=== PATIENT | female | born 1940 | race Two or more races ===

== ENCOUNTER 2021-10-22 20:49 | Inpatient (IN) | payer MEDICARE, OTHER ==
[~2021-10-22] VITALS: Ht 162.6 cm; Wt 62.3 kg
[2021-10-22 21:38] LABS: Basophils # (auto) 0.1 10 ^3/uL (0-0.2); Basophils % (auto) 1.1 % (0.0-2.0); Eosinophils # (auto) 0 10 ^3/uL (0-0.8); Eosinophils % (auto) 0.5 % (0.0-7.0); Hematocrit 55.4 % (36.0-46.0); Hemoglobin 17.3 g/dL (12.2-16.2); Lymphocytes # (auto) 0.8 10 ^3/uL (0.4-5.4); Lymphocytes % (auto) 9.2 % (10.0-50.0); Mean Corpuscular Hemoglobin 25.8 pg (28.0-32.0); Mean Corpuscular Hgb Conc. 31.2 g/dL (32.0-36.0); Mean Corpuscular Volume 82.7 fL (80.0-100.0); Monocytes # (auto) 0.8 10 ^3/uL (0-1.3); Monocytes % (auto) 9.1 % (0.0-12.0); Neutrophils # (auto) 7.1 10 ^3/uL (1.6-8.6); Neutrophils % (auto) 80.1 % (37.0-80.0); Nucleated Red Blood Cells % 0.3 %; White Blood Cell 8.8 10^3/uL (4.4-10.8)
[2021-10-22 21:40] LABS: Red Cell Distribution Width 20.9 % (11.8-14.3)
[2021-10-22 21:51] LABS: Albumin 2.8 g/dL (3.4-5.0); Calcium 8.4 mg/dL (8.5-10.1); Potassium 4.3 mmol/L (3.5-5.1)
[2021-10-22 21:54] LABS: BUN/Creatinine Ratio 26.3; Bilirubin, Total 1.4 mg/dL (0.2-1.0); Total Protein 6.7 g/dL (6.4-8.2)
[2021-10-23] MEDS ORDERED: methylPREDNISolone SOD SUCC 125 MG/2 ML VL IV ONE (01:15)
[2021-10-23] MEDS ORDERED: cefTRIAXone 1GM/50ML D5W 50 ML IV ONE (01:15)
[2021-10-23] MEDS ORDERED: AZITHROMYCIN 500MG/ 250ML 250 ML IV ONE (01:15)
[2021-10-23] MEDS ORDERED: MORPHINE SULFATE INJ 2 MG/ml SYRG IV PRN (04:15)
[2021-10-23] MEDS ORDERED: ACETAMINOPHEN 325 MG TAB PO PRN (04:15)
[2021-10-23] MEDS ORDERED: ALBUTEROL SULF 2.5 MG/0.5ML(0.5%) NEB SOLN NEB PRN (04:15)
[2021-10-23] MEDS ORDERED: FUROSEMIDE 40 MG/4 ML VIAL IV ONE (04:15)
[2021-10-23] MEDS ORDERED: ONDANSETRON HCL 4 MG/2 ML VIAL IV PRN (04:15)
[2021-10-23] MEDS ORDERED: NITROGLYCERIN 0.4 MG SL TAB SL PRN (04:15)
[2021-10-23 09:19] LABS: INR 1.37 (0.9-1.15); Partial Thromboplastin Time 28.6 sec (23.6-33.0)
[2021-10-23 09:24] VITALS: BP 118/64
[2021-10-23] MEDS: AZITHROMYCIN 500MG/ 250ML 250 ML IV SCH (10:00)
[2021-10-23] MEDS: ASPirin 81 mg TAB PO SCH (10:00)
[2021-10-23] MEDS ORDERED: PANTOPRAZOLE 40 MG TAB PO SCH (10:00)
[2021-10-23] MEDS: ENOXAPARIN SOD 40 MG/0.4 ML SYRINGE SC SCH (10:00)
[2021-10-23] MEDS: CARVEDILOL 3.125 MG TAB PO SCH ×2 (10:00→22:00)
[2021-10-23 13:37] VITALS: BP 118/64
[2021-10-23] MEDS: LORazepam 2MG/ML-1ML VIAL IV PRN (15:42)
[2021-10-23] MEDS: FUROSEMIDE 20 MG/2 ML VIAL IV SCH (17:13)
[2021-10-23 22:00] VITALS: BP 93/53
[2021-10-23] MEDS: ATORVASTATIN 20 MG TAB PO SCH (22:00)
[2021-10-23 23:45] VITALS: BP 102/40
[2021-10-24 05:00] VITALS: BP_SYST 103; BP_SYST 122; BP_DIAS 58; BP_DIAS 59
[2021-10-24] MEDS: FUROSEMIDE 20 MG/2 ML VIAL IV SCH ×2 (06:56→18:21)
[2021-10-24 07:05] LABS: Basophils # (auto) 0 10 ^3/uL (0-0.2); Basophils % (auto) 0.1 % (0.0-2.0); Eosinophils # (auto) 0 10 ^3/uL (0-0.8); Hemoglobin 16.8 g/dL (12.2-16.2); Monocytes # (auto) 1.3 10 ^3/uL (0-1.3); White Blood Cell 10.1 10^3/uL (4.4-10.8)
[2021-10-24 07:11] LABS: Hematocrit 55.9 % (36.0-46.0); Lymphocytes # (auto) 0.9 10 ^3/uL (0.4-5.4); Mean Corpuscular Volume 86.9 fL (80.0-100.0); Monocytes % (auto) 12.6 % (0.0-12.0); Neutrophils # (auto) 7.9 10 ^3/uL (1.6-8.6); Neutrophils % (auto) 78.3 % (37.0-80.0); Nucleated Red Blood Cells % 0.7 %; Red Blood Cells 6.44 10^6/uL (4.0-5.20); Red Cell Distribution Width 21.2 % (11.8-14.3)
[2021-10-24 07:28] LABS: Potassium 4.8 mmol/L (3.5-5.1)
[2021-10-24 07:40] LABS: Albumin 2.5 g/dL (3.4-5.0); BUN/Creatinine Ratio 30.7; Bilirubin, Total 0.7 mg/dL (0.2-1.0); Calcium 8.3 mg/dL (8.5-10.1); Total Protein 6.4 g/dL (6.4-8.2)
[2021-10-24 08:00] VITALS: BP 106/53
[2021-10-24 08:10] VITALS: BP 106/53
[2021-10-24] MEDS: AZITHROMYCIN 500MG/ 250ML 250 ML IV SCH (09:39)
[2021-10-24] MEDS: ASPirin 81 mg TAB PO SCH (09:44)
[2021-10-24] MEDS: CARVEDILOL 3.125 MG TAB PO SCH ×2 (09:45→22:08)
[2021-10-24] MEDS: ENOXAPARIN SOD 40 MG/0.4 ML SYRINGE SC SCH (09:46)
[2021-10-24] MEDS: methylPREDNISolone SOD SUCC 40 MG/ML VL IV SCH ×2 (11:02→22:06)
[2021-10-24 12:00] VITALS: BP 112/64
[2021-10-24 16:00] VITALS: BP 103/44
[2021-10-24 22:00] VITALS: BP 144/57
[2021-10-24] MEDS: ATORVASTATIN 20 MG TAB PO SCH (22:08)
[2021-10-25 05:00] VITALS: BP 124/51
[2021-10-25] MEDS: FUROSEMIDE 20 MG/2 ML VIAL IV SCH ×2 (06:29→18:00)
[2021-10-25] MEDS: CARVEDILOL 3.125 MG TAB PO SCH ×2 (10:00→21:52)
[2021-10-25] MEDS: ASPirin 81 mg TAB PO SCH (11:03)
[2021-10-25] MEDS: methylPREDNISolone SOD SUCC 40 MG/ML VL IV SCH ×2 (11:06→23:06)
[2021-10-25] MEDS: ENOXAPARIN SOD 40 MG/0.4 ML SYRINGE SC SCH (11:06)
[2021-10-25] MEDS: LORazepam 2MG/ML-1ML VIAL IV PRN ×2 (11:06→21:02)
[2021-10-25] MEDS: AZITHROMYCIN 500MG/ 250ML 250 ML IV SCH (11:07)
[2021-10-25 13:00] VITALS: BP 99/51
[2021-10-25 14:23] LABS: Basophils # (auto) 0 10 ^3/uL (0-0.2); Basophils % (auto) 0.1 % (0.0-2.0); Eosinophils # (auto) 0 10 ^3/uL (0-0.8); Hemoglobin 15.4 g/dL (12.2-16.2); Monocytes # (auto) 0.4 10 ^3/uL (0-1.3); Neutrophils # (auto) 6.2 10 ^3/uL (1.6-8.6)
[2021-10-25 14:26] LABS: Hematocrit 49.4 % (36.0-46.0); Lymphocytes # (auto) 0.4 10 ^3/uL (0.4-5.4); Lymphocytes % (auto) 5.8 % (10.0-50.0); Mean Corpuscular Hemoglobin 26.1 pg (28.0-32.0); Mean Corpuscular Hgb Conc. 31.2 g/dL (32.0-36.0); Mean Corpuscular Volume 83.6 fL (80.0-100.0); Monocytes % (auto) 5.3 % (0.0-12.0); Neutrophils % (auto) 88.8 % (37.0-80.0); Nucleated Red Blood Cells % 0.3 %; Red Blood Cells 5.91 10^6/uL (4.0-5.20); Red Cell Distribution Width 20.6 % (11.8-14.3)
[2021-10-25 14:45] LABS: Calcium 8.1 mg/dL (8.5-10.1); Potassium 4.7 mmol/L (3.5-5.1)
[2021-10-25 14:47] LABS: BUN/Creatinine Ratio 41.7
[2021-10-25 17:00] VITALS: BP 109/53
[2021-10-25] MEDS: MIDODRINE HCL 10 MG TAB PO SCH (18:00)
[2021-10-25 20:00] VITALS: BP 98/51
[2021-10-25 22:00] VITALS: BP 99/43
[2021-10-25] MEDS: ATORVASTATIN 20 MG TAB PO SCH (22:00)
[2021-10-26 05:00] VITALS: BP 132/70
[2021-10-26] MEDS: MIDODRINE HCL 10 MG TAB PO SCH ×3 (05:19→17:36)
[2021-10-26] MEDS: FUROSEMIDE 20 MG/2 ML VIAL IV SCH ×2 (05:20→17:36)
[2021-10-26 09:00] VITALS: BP 102/45
[2021-10-26 09:09] VITALS: BP 163/70
[2021-10-26] MEDS: AZITHROMYCIN 500MG/ 250ML 250 ML IV SCH (09:18)
[2021-10-26] MEDS: ENOXAPARIN SOD 40 MG/0.4 ML SYRINGE SC SCH (09:18)
[2021-10-26] MEDS: methylPREDNISolone SOD SUCC 40 MG/ML VL IV SCH ×2 (09:18→21:37)
[2021-10-26] MEDS: CARVEDILOL 3.125 MG TAB PO SCH ×2 (10:00→22:00)
[2021-10-26] MEDS: LACTULOSE 20Gm/30ML SOLN PO SCH (10:00)
[2021-10-26] MEDS: ASPirin 81 mg TAB PO SCH (10:00)
[2021-10-26 13:00] VITALS: BP 121/68
[2021-10-26] MEDS: QUEtiapine FUMARATE 25 MG TAB PO SCH ×2 (16:00→22:00)
[2021-10-26 17:00] VITALS: BP 131/57
[2021-10-26 22:00] VITALS: BP 102/52
[2021-10-26] MEDS: ATORVASTATIN 20 MG TAB PO SCH (22:00)
[2021-10-26] MEDS ORDERED: QUEtiapine FUMARATE 25 MG TAB PO SCH (22:00)
[2021-10-27] MEDS: CARVEDILOL 3.125 MG TAB PO SCH ×3 (00:07→21:06)
[2021-10-27] MEDS: ATORVASTATIN 20 MG TAB PO SCH ×2 (00:07→21:05)
[2021-10-27] MEDS: QUEtiapine FUMARATE 25 MG TAB PO SCH ×3 (00:07→21:05)
[2021-10-27 05:00] VITALS: BP 130/79
[2021-10-27] MEDS: FUROSEMIDE 20 MG/2 ML VIAL IV SCH ×2 (05:38→18:39)
[2021-10-27] MEDS: MIDODRINE HCL 10 MG TAB PO SCH ×3 (05:38→18:00)
[2021-10-27 08:00] VITALS: BP 115/68
[2021-10-27 09:51] LABS: Hepatitis B Surface Antibody Negative (Negative)
[2021-10-27] MEDS: ASPirin 81 mg TAB PO SCH (11:04)
[2021-10-27] MEDS: AZITHROMYCIN 500MG/ 250ML 250 ML IV SCH (11:04)
[2021-10-27] MEDS: methylPREDNISolone SOD SUCC 40 MG/ML VL IV SCH ×2 (11:04→21:05)
[2021-10-27] MEDS: LACTULOSE 20Gm/30ML SOLN PO SCH (11:04)
[2021-10-27] MEDS: ENOXAPARIN SOD 40 MG/0.4 ML SYRINGE SC SCH (11:09)
[2021-10-27 11:22] LABS: Hepatitis A Total Antibody Positive (Negative)
[2021-10-27 11:57] LABS: Basophils # (auto) 0 10 ^3/uL (0-0.2); Eosinophils # (auto) 0 10 ^3/uL (0-0.8); Lymphocytes # (auto) 0.5 10 ^3/uL (0.4-5.4); Monocytes # (auto) 0.5 10 ^3/uL (0-1.3)
[2021-10-27 11:59] LABS: Hematocrit 54.5 % (36.0-46.0); Lymphocytes % (auto) 5.9 % (10.0-50.0); Mean Corpuscular Hgb Conc. 31.2 g/dL (32.0-36.0); Mean Corpuscular Volume 83.6 fL (80.0-100.0); Monocytes % (auto) 6.5 % (0.0-12.0); Neutrophils # (auto) 6.8 10 ^3/uL (1.6-8.6); Neutrophils % (auto) 87.6 % (37.0-80.0); Nucleated Red Blood Cells % 0.4 %; Red Blood Cells 6.52 10^6/uL (4.0-5.20); White Blood Cell 7.8 10^3/uL (4.4-10.8)
[2021-10-27 12:00] VITALS: BP 123/62
[2021-10-27 12:06] LABS: Red Cell Distribution Width 20.2 % (11.8-14.3)
[2021-10-27 12:10] LABS: Hepatitis C Antibody Negative (Negative)
[2021-10-27 12:15] LABS: BUN/Creatinine Ratio 47.8; Calcium 8.7 mg/dL (8.5-10.1); Potassium 4.8 mmol/L (3.5-5.1)
[2021-10-27] MEDS: LORazepam 2MG/ML-1ML VIAL IV PRN (14:43)
[2021-10-27 16:00] VITALS: BP 115/52
[2021-10-27 22:00] VITALS: BP 121/76
[2021-10-28] MEDS: FUROSEMIDE 20 MG/2 ML VIAL IV SCH ×2 (04:59→18:14)
[2021-10-28 05:00] VITALS: BP 108/54
[2021-10-28] MEDS: MIDODRINE HCL 10 MG TAB PO SCH ×3 (05:00→18:14)
[2021-10-28 06:36] LABS: Chloride 98 mmol/L (98-107); Sodium 137 mmol/L (136-145)
[2021-10-28 06:47] LABS: Anion Gap 3 (5-15); BUN/Creatinine Ratio 44.3; Blood Urea Nitrogen 31 mg/dL (7-18); Calcium 8.5 mg/dL (8.5-10.1); Carbon Dioxide 36 mmol/L (21-32); GFR African American 104 mL/min; GFR Non-African American 86 mL/min; Glucose 154 mg/dL (74-106)
[2021-10-28 06:52] LABS: Potassium 5.7 mmol/L (3.5-5.1)
[2021-10-28 08:07] LABS: Basophils # (auto) 0 10 ^3/uL (0-0.2); Eosinophils # (auto) 0 10 ^3/uL (0-0.8); Hemoglobin 16.7 g/dL (12.2-16.2); Lymphocytes # (auto) 0.4 10 ^3/uL (0.4-5.4); Monocytes # (auto) 0.4 10 ^3/uL (0-1.3); Neutrophils # (auto) 7.1 10 ^3/uL (1.6-8.6); Nucleated Red Blood Cells % 0.2 %; White Blood Cell 7.9 10^3/uL (4.4-10.8)
[2021-10-28 08:09] LABS: Basophils % (auto) 0.1 % (0.0-2.0); Eosinophils % (auto) 0.1 % (0.0-7.0); Hematocrit 53.1 % (36.0-46.0); Lymphocytes % (auto) 4.7 % (10.0-50.0); Mean Corpuscular Hemoglobin 26.3 pg (28.0-32.0); Mean Corpuscular Hgb Conc. 31.4 g/dL (32.0-36.0); Mean Corpuscular Volume 83.7 fL (80.0-100.0); Monocytes % (auto) 5.2 % (0.0-12.0); Neutrophils % (auto) 89.9 % (37.0-80.0); Red Blood Cells 6.34 10^6/uL (4.0-5.20)
[2021-10-28 08:17] LABS: Red Cell Distribution Width 20.6 % (11.8-14.3)
[2021-10-28] MEDS: methylPREDNISolone SOD SUCC 40 MG/ML VL IV SCH ×2 (09:47→21:18)
[2021-10-28] MEDS: LACTULOSE 20Gm/30ML SOLN PO SCH (10:00)
[2021-10-28] MEDS: QUEtiapine FUMARATE 25 MG TAB PO SCH ×2 (10:00→21:18)
[2021-10-28] MEDS: CARVEDILOL 3.125 MG TAB PO SCH ×2 (10:00→21:19)
[2021-10-28] MEDS: ASPirin 81 mg TAB PO SCH (10:00)
[2021-10-28] MEDS: ENOXAPARIN SOD 40 MG/0.4 ML SYRINGE SC SCH (10:02)
[2021-10-28] MEDS: AZITHROMYCIN 500MG/ 250ML 250 ML IV SCH (10:04)
[2021-10-28] MEDS ORDERED: PIPERACILLIN-TAZOB 3.375GM 100 ML IV ONE (20:45)
[2021-10-28] MEDS: PIPERACILLIN-TAZOB 3.375GM 100 ML IV SCH (21:00)
[2021-10-28] MEDS: ATORVASTATIN 20 MG TAB PO SCH (21:18)
[2021-10-28 22:00] VITALS: BP 128/81
[2021-10-28 23:34] VITALS: BP 116/56
[2021-10-29] VITALS (7 sets, daily range): BP systolic 107–120; BP diastolic 50–62
[2021-10-29 03:40] LABS: BUN/Creatinine Ratio 42.3; Calcium 8.4 mg/dL (8.5-10.1); Potassium 4.7 mmol/L (3.5-5.1)
[2021-10-29] MEDS: PIPERACILLIN-TAZOB 3.375GM 100 ML IV SCH ×3 (03:54→21:53)
[2021-10-29 04:51] LABS: Basophils # (auto) 0 10 ^3/uL (0-0.2); Basophils % (auto) 0.4 % (0.0-2.0); Eosinophils # (auto) 0 10 ^3/uL (0-0.8); Nucleated Red Blood Cells % 0.4 %
[2021-10-29 04:53] LABS: Hematocrit 53.8 % (36.0-46.0); Lymphocytes # (auto) 0.5 10 ^3/uL (0.4-5.4); Lymphocytes % (auto) 5.7 % (10.0-50.0); Mean Corpuscular Hemoglobin 25.8 pg (28.0-32.0); Mean Corpuscular Hgb Conc. 31.6 g/dL (32.0-36.0); Mean Corpuscular Volume 81.7 fL (80.0-100.0); Monocytes # (auto) 0.3 10 ^3/uL (0-1.3); Monocytes % (auto) 3.6 % (0.0-12.0); Neutrophils # (auto) 7.2 10 ^3/uL (1.6-8.6); Neutrophils % (auto) 90.3 % (37.0-80.0); Red Blood Cells 6.58 10^6/uL (4.0-5.20)
[2021-10-29 05:01] LABS: Red Cell Distribution Width 20.7 % (11.8-14.3)
[2021-10-29] MEDS: FUROSEMIDE 20 MG/2 ML VIAL IV SCH ×2 (05:22→18:55)
[2021-10-29] MEDS: MIDODRINE HCL 10 MG TAB PO SCH ×3 (05:58→18:00)
[2021-10-29] MEDS: ENOXAPARIN SOD 40 MG/0.4 ML SYRINGE SC SCH (10:00)
[2021-10-29] MEDS: LACTULOSE 20Gm/30ML SOLN PO SCH (10:25)
[2021-10-29] MEDS: methylPREDNISolone SOD SUCC 40 MG/ML VL IV SCH ×2 (10:26→21:54)
[2021-10-29] MEDS: ASPirin 81 mg TAB PO SCH (10:26)
[2021-10-29] MEDS: QUEtiapine FUMARATE 25 MG TAB PO SCH ×2 (10:27→22:00)
[2021-10-29] MEDS: CARVEDILOL 3.125 MG TAB PO SCH ×2 (10:28→22:00)
[2021-10-29] MEDS: LORazepam 2MG/ML-1ML VIAL IV PRN (10:31)
[2021-10-29] MEDS: ATORVASTATIN 20 MG TAB PO SCH (22:00)
[2021-10-30] MEDS: PIPERACILLIN-TAZOB 3.375GM 100 ML IV SCH ×3 (04:25→21:11)
[2021-10-30 05:00] VITALS: BP 109/57
[2021-10-30 05:04] LABS: BUN/Creatinine Ratio 40.8; Blood Urea Nitrogen 29 mg/dL (7-18); Chloride 86 mmol/L (98-107); GFR African American 102 mL/min; GFR Non-African American 84 mL/min; Glucose 158 mg/dL (74-106); Sodium 140 mmol/L (136-145)
[2021-10-30 05:50] LABS: Anion Gap 6 (5-15); Carbon Dioxide 48 mmol/L (21-32)
[2021-10-30] MEDS: FUROSEMIDE 20 MG/2 ML VIAL IV SCH ×2 (06:51→17:59)
[2021-10-30] MEDS: MIDODRINE HCL 10 MG TAB PO SCH ×3 (06:51→17:58)
[2021-10-30 09:00] VITALS: BP 135/70
[2021-10-30 09:07] LABS: Basophils # (auto) 0 10 ^3/uL (0-0.2); Eosinophils # (auto) 0 10 ^3/uL (0-0.8); Lymphocytes # (auto) 0.7 10 ^3/uL (0.4-5.4); Mean Corpuscular Volume 82.7 fL (80.0-100.0); Monocytes % (auto) 5.6 % (0.0-12.0); Neutrophils # (auto) 10.2 10 ^3/uL (1.6-8.6); White Blood Cell 11.6 10^3/uL (4.4-10.8)
[2021-10-30 09:09] LABS: Basophils % (auto) 0.2 % (0.0-2.0); Hematocrit 58.9 % (36.0-46.0); Hemoglobin 18.7 g/dL (12.2-16.2); Lymphocytes % (auto) 6.2 % (10.0-50.0); Mean Corpuscular Hemoglobin 26.3 pg (28.0-32.0); Mean Corpuscular Hgb Conc. 31.8 g/dL (32.0-36.0); Monocytes # (auto) 0.7 10 ^3/uL (0-1.3); Nucleated Red Blood Cells % 0.5 %; Red Blood Cells 7.13 10^6/uL (4.0-5.20); Red Cell Distribution Width 20.3 % (11.8-14.3)
[2021-10-30] MEDS: LACTULOSE 20Gm/30ML SOLN PO SCH (09:34)
[2021-10-30] MEDS: methylPREDNISolone SOD SUCC 40 MG/ML VL IV SCH ×2 (09:34→21:11)
[2021-10-30] MEDS: ASPirin 81 mg TAB PO SCH (09:34)
[2021-10-30] MEDS: QUEtiapine FUMARATE 25 MG TAB PO SCH ×2 (09:34→21:28)
[2021-10-30] MEDS: CARVEDILOL 3.125 MG TAB PO SCH ×2 (09:35→21:27)
[2021-10-30] MEDS: ENOXAPARIN SOD 40 MG/0.4 ML SYRINGE SC SCH (10:00)
[2021-10-30 13:00] VITALS: BP_SYST 139; BP_SYST 84; BP_DIAS 51; BP_DIAS 63
[2021-10-30 13:42] VITALS: BP 91/50
[2021-10-30 17:00] VITALS: BP 136/72
[2021-10-30] MEDS: ATORVASTATIN 20 MG TAB PO SCH (21:28)
[2021-10-31] MEDS: LORazepam 2MG/ML-1ML VIAL IV PRN (01:07)
[2021-10-31] MEDS: PIPERACILLIN-TAZOB 3.375GM 100 ML IV SCH ×2 (06:03→12:50)
[2021-10-31] MEDS: MIDODRINE HCL 10 MG TAB PO SCH ×3 (06:04→17:28)
[2021-10-31] MEDS: FUROSEMIDE 20 MG/2 ML VIAL IV SCH ×2 (06:20→17:29)
[2021-10-31 06:30] LABS: Basophils # (auto) 0 10 ^3/uL (0-0.2); Basophils % (auto) 0.1 % (0.0-2.0); Eosinophils # (auto) 0 10 ^3/uL (0-0.8); Hematocrit 58.8 % (36.0-46.0); Hemoglobin 18.3 g/dL (12.2-16.2); Lymphocytes # (auto) 0.4 10 ^3/uL (0.4-5.4); Lymphocytes % (auto) 3.8 % (10.0-50.0); Mean Corpuscular Hemoglobin 25.7 pg (28.0-32.0); Mean Corpuscular Hgb Conc. 31.2 g/dL (32.0-36.0); Mean Corpuscular Volume 82.5 fL (80.0-100.0); Monocytes # (auto) 0.4 10 ^3/uL (0-1.3); Monocytes % (auto) 4.4 % (0.0-12.0); Neutrophils # (auto) 8.9 10 ^3/uL (1.6-8.6); Neutrophils % (auto) 91.7 % (37.0-80.0); Nucleated Red Blood Cells % 0.6 %; Red Blood Cells 7.13 10^6/uL (4.0-5.20); Red Cell Distribution Width 20.1 % (11.8-14.3); White Blood Cell 9.7 10^3/uL (4.4-10.8)
[2021-10-31 07:34] LABS: BUN/Creatinine Ratio 50.8; Calcium 8.6 mg/dL (8.5-10.1)
[2021-10-31 09:00] VITALS: BP 146/79
[2021-10-31] MEDS ORDERED: ASPI-325 PO (09:52)
[2021-10-31] MEDS ORDERED: ATOR20TA50 PO (09:52)
[2021-10-31] MEDS ORDERED: ALB5IS NEB (09:52)
[2021-10-31] MEDS ORDERED: MID10T PO (09:52)
[2021-10-31] MEDS ORDERED: LACT10SO3 PO (09:52)
[2021-10-31] MEDS ORDERED: CAR3125T PO (09:52)
[2021-10-31] MEDS: ENOXAPARIN SOD 40 MG/0.4 ML SYRINGE SC SCH (10:19)
[2021-10-31] MEDS: QUEtiapine FUMARATE 25 MG TAB PO SCH (10:19)
[2021-10-31] MEDS: ASPirin 81 mg TAB PO SCH (10:19)
[2021-10-31] MEDS: CARVEDILOL 3.125 MG TAB PO SCH (10:20)
[2021-10-31] MEDS: LACTULOSE 20Gm/30ML SOLN PO SCH (10:21)
[2021-10-31] MEDS: methylPREDNISolone SOD SUCC 40 MG/ML VL IV SCH (10:21)
[2021-10-31 12:34] VITALS: BP 105/58
[2021-10-31 16:33] VITALS: BP 105/56
[2021-10-31 17:00] VITALS: BP 137/62
[2021-10-31 17:29] VITALS: BP 143/56
== END 2021-10-31 21:00 | disposition home health service (06) | DRG 177 ==
LOC: EDBD 20:49 → ER 20:49 → EDBD 10-23 04:11 → TELE 10-23 04:11 → TELE-EAST 10-23 08:05 → TELE-CENTR 10-23 16:50
PROVIDERS: ADMIT Nurse Practitioner; ATTEND Internal Medicine Pulmonary Disease
PROC: 0W9G3ZZ Drainage of Peritoneal Cavity, Percutaneous Approach (ICD-10-PCS; principal; 2021-10-24)
PROC: 5A09457 Assistance with Respiratory Ventilation, 24-96 Consecutive Hours, Continuous Positive Airway Pressure (ICD-10-PCS; 2021-10-24)
PROC: 5A09357 Assistance with Respiratory Ventilation, Less than 24 Consecutive Hours, Continuous Positive Airway Pressure (ICD-10-PCS; 2021-10-27)
PROC: 5A09357 Assistance with Respiratory Ventilation, Less than 24 Consecutive Hours, Continuous Positive Airway Pressure (ICD-10-PCS; 2021-10-28)
PROC: 5A09357 Assistance with Respiratory Ventilation, Less than 24 Consecutive Hours, Continuous Positive Airway Pressure (ICD-10-PCS; 2021-10-29)
DX: J69.0 Pneumonitis due to inhalation of food and vomit (principal); I50.23 Acute on chronic systolic (congestive) heart failure; J96.01 Acute respiratory failure with hypoxia; J96.02 Acute respiratory failure with hypercapnia; E44.0 Moderate protein-calorie malnutrition; R18.8 Other ascites; E87.4 Mixed disorder of acid-base balance; J44.1 Chronic obstructive pulmonary disease with (acute) exacerbation; J44.0 Chronic obstructive pulmonary disease with (acute) lower respiratory infection; I50.9 Heart failure, unspecified; R00.1 Bradycardia, unspecified; F03.90 Unspecified dementia, unspecified severity, without behavioral disturbance, psychotic disturbance, mood disturbance, and anxiety; Z85.72 Personal history of non-Hodgkin lymphomas; Z68.26 Body mass index [BMI] 26.0-26.9, adult; Z20.822 Contact with and (suspected) exposure to COVID-19; Z68.37 Body mass index [BMI] 37.0-37.9, adult
CPT/HCPCS: 36415; 36600; 71045; 71250; 74176; 76604; 76705; 76942; 80048; 80053; 82140; 82805; 83605; 83615; 83690; 83880; 83986; 84484; 85025; 85048; 85610; 85730; 86038; 86704; 86706; 86708; 86803; 87205; 87340; 87804; 89051; 93005; 93306; 94660; 96365; 96375; 97110; 97116; 97163; 97530; 99291; G0378; J0696; J2543